=== PATIENT | male | born 1970 | race Caucasian/White ===

== ENCOUNTER 2018-03-26 15:25 | Outpatient (REF) | payer BC, SELFPAY ==
[2018-03-26 20:04] LABS: Abs Immature Grans 0.06 k/cumm (0.0-0.09); HCT 41.9 % (40.0-50.0); Mean Corp. HGB Concentration 33.4 g/dL (32.0-36.0); Mean Corpuscular Hemoglobin 29.7 pg (27.0-33.0); Mean Platelet Volume 11.6 fL (8.0-11.0); Platelet Count 261 x1000/uL (130-400); RBC 4.71 m/cumm (4.50-6.00); RBC Distribution Width 13.3 % (11.8-14.1); White Blood Cell Count 11.39 k/cumm (4.4-10.8)
[2018-03-26 21:03] LABS: Absolute Lymphocyte Count 2.51 k/cumm (1.2-3.4); Absolute Monocyte Count 1.37 k/cumm (0.11-0.7); Absolute Neutrophil Count 7.29 k/cumm (1.2-6.7); Atypical Lymphocytes % 8
[2018-03-26 21:04] LABS: Absolute Eosinophil Count 0.23 k/cumm (0.0-0.7)
[2018-03-26 21:05] LABS: Diff Comment Manual Differential; RBC Morphology Normal
== END 2018-03-26 15:45 ==
LOC: NCHCN 15:25
PROVIDERS: PCP Internal Medicine; Visit Provider Internal Medicine
DX: K57.92 Diverticulitis of intestine, part unspecified, without perforation or abscess without bleeding (principal); R10.9 Unspecified abdominal pain
CPT/HCPCS: 85025

== ENCOUNTER 2018-06-29 10:11 | Outpatient (REF) | payer BC, SELFPAY ==
[2018-06-29 19:12] LABS: ALT 32 U/L (12-78); AST 14 U/L (15-37); Albumin 4.2 g/dL (3.4-5.0); Alkaline Phosphatase 36 U/L (46-116); Anion Gap 9.4 mmol/L (3-11); BUN 21 mg/dL (7-18); Bilirubin, Total 0.6 mg/dL (0.2-1.0); CO2 27.6 mmol/L (21.0-32.0); CREATININE 1.24 mg/dL (0.70-1.30); Calcium 9.7 mg/dL (8.5-10.1); Chloride 105 mmol/L (98-107); Cholesterol 202 mg/dL (50-200); Glucose 87 mg/dL (70-100); HDL Cholesterol 47 mg/dL (40-60); LDL CHOLESTEROL 132 mg/dL (<100); Potassium 4.5 mmol/L (3.5-5.1); Sodium 142 mmol/L (136-145); Total Protein 7.3 g/dL (6.4-8.2); Triglyceride 125 mg/dL (30-150)
== END 2018-06-29 10:31 ==
LOC: NCHCN 10:11
PROVIDERS: PCP Internal Medicine; Visit Provider Internal Medicine
DX: E78.5 Hyperlipidemia, unspecified (principal); I10 Essential (primary) hypertension
CPT/HCPCS: 80053; 80061; 83721

== ENCOUNTER 2018-11-25 09:21 | Outpatient (REF) | payer BC, SELFPAY ==
[2018-11-25 20:31] LABS: Cholesterol 279 mg/dL (50-200); HDL Cholesterol 35 mg/dL (40-60); Triglyceride 432 mg/dL (30-150)
[2018-11-25 21:03] LABS: LDL CHOLESTEROL 167 mg/dL (<100)
== END 2018-11-25 09:41 ==
LOC: NCHCN 09:21
PROVIDERS: PCP Internal Medicine; Visit Provider Internal Medicine
DX: Z00.00 Encounter for general adult medical examination without abnormal findings (principal); I10 Essential (primary) hypertension
CPT/HCPCS: 80061; 83721

== ENCOUNTER 2019-10-21 14:56 | Outpatient (REF) | payer BC, SELFPAY ==
[2019-10-23 13:23] LABS: COVID-19 RT-PCR UVMMC Result Negative (Negative)
== END 2019-10-21 15:16 ==
LOC: NCHCN 14:56
PROVIDERS: PCP Nurse Practitioner Family; Visit Provider Nurse Practitioner Family
DX: R05 Cough (principal)
CPT/HCPCS: U0003

== ENCOUNTER 2019-10-28 16:46 | Outpatient (REF) | payer BC, SELFPAY ==
[2019-10-28 20:08] LABS: HCT 43.1 % (40.0-50.0); HGB 14.8 g/dL (13.5-17.5); Mean Corp. HGB Concentration 34.3 g/dL (32.0-36.0); Mean Corpuscular Hemoglobin 30.1 pg (27.0-33.0); Mean Corpuscular Volume 87.8 fL (80-95); Mean Platelet Volume 11.8 fL (8.0-11.0); Platelet Count 216 x1000/uL (130-400); RBC 4.91 m/cumm (4.50-6.00); RBC Distribution Width 13.4 % (11.8-14.1); White Blood Cell Count 7.23 k/cumm (4.4-10.8)
[2019-10-28 20:45] LABS: Albumin 4.2 g/dL (3.4-5.0); Alkaline Phosphatase 65 U/L (46-116); Anion Gap 9.9 mmol/L (3-11); BUN 20 mg/dL (7-18); Bilirubin, Total 0.5 mg/dL (0.2-1.0); CO2 28.1 mmol/L (21.0-32.0); CREATININE 1.11 mg/dL (0.70-1.30); Calcium 9.4 mg/dL (8.5-10.1); Chloride 105 mmol/L (98-107); Glucose 105 mg/dL (74-106); NT-proBNP 28 pg/mL (<300); Potassium 4.5 mmol/L (3.5-5.1); Sodium 143 mmol/L (136-145)
[2019-10-28 21:39] LABS: Troponin I < 0.05 ng/mL (<0.06)
[2019-10-28 21:40] LABS: ALT 13 U/L (16-63); AST 44 U/L (15-37)
== END 2019-10-28 17:06 ==
LOC: NCHCN 16:46
PROVIDERS: PCP Nurse Practitioner Family; Visit Provider Internal Medicine
DX: R07.89 Other chest pain (principal); R06.02 Shortness of breath
CPT/HCPCS: 80053; 85027; 83880; 84484

== ENCOUNTER 2021-01-29 10:38 | Outpatient (REF) | payer BC, SELFPAY ==
[2021-01-29 20:42] LABS: Calculated LDL 143 mg/dL (<100); Cholesterol 251 mg/dL (<200); HDL Cholesterol 43 mg/dL (40-60); Triglyceride 326 mg/dL (<150)
== END 2021-01-29 10:39 | disposition home or self-care (01) ==
LOC: NCHCN 10:38
PROVIDERS: PCP Nurse Practitioner Family; Visit Provider Internal Medicine
DX: E78.2 Mixed hyperlipidemia (principal)
CPT/HCPCS: 80061

== ENCOUNTER 2021-09-10 19:55 | Outpatient (REF) | payer BC, SELFPAY ==
[2021-09-10 19:50] LABS: ALT 27 U/L (16-63); AST 15 U/L (15-37); Albumin 4.3 g/dL (3.4-5.0); Alkaline Phosphatase 71 U/L (46-116); Anion Gap 7.4 mmol/L (3-11); BUN 16 mg/dL (7-18); Bilirubin, Total 0.5 mg/dL (0.2-1.0); CO2 28.6 mmol/L (21.0-32.0); Calcium 9.1 mg/dL (8.5-10.1); Calculated LDL 109 mg/dL (<100); Chloride 106 mmol/L (98-107); Cholesterol 196 mg/dL (<200); Glucose 95 mg/dL (74-106); HDL Cholesterol 41 mg/dL (40-60); Potassium 5.1 mmol/L (3.5-5.1); Sodium 142 mmol/L (136-145); Triglyceride 232 mg/dL (<150)
== END 2021-09-10 19:56 | disposition home or self-care (01) ==
LOC: NCHCN 19:55
PROVIDERS: PCP Nurse Practitioner Family; Visit Provider Internal Medicine
DX: I10 Essential (primary) hypertension (principal); E78.2 Mixed hyperlipidemia
CPT/HCPCS: 80053; 80061

== ENCOUNTER 2023-03-21 14:28 | Outpatient (REF) | payer BC, SELFPAY ==
[2023-03-21 18:43] LABS: ALT 39 U/L (16-63); AST 18 U/L (15-37); Albumin 4.2 g/dL (3.4-5.0); Alkaline Phosphatase 75 U/L (46-116); Anion Gap 9.3 mmol/L (3-11); BUN 14 mg/dL (7-18); Bilirubin, Total 0.9 mg/dL (0.2-1.0); CO2 28.7 mmol/L (21.0-32.0); Calcium 9.5 mg/dL (8.5-10.1); Calculated LDL 165 mg/dL (<100); Chloride 102 mmol/L (98-107); Cholesterol 269 mg/dL (<200); Estimated GFR 91.69 (mL/min/1.73m2); Glucose 105 mg/dL (74-106); HDL Cholesterol 46 mg/dL (40-60); Potassium 4.1 mmol/L (3.5-5.1); Sodium 140 mmol/L (136-145); Triglyceride 290 mg/dL (<150)
[2023-03-21 19:35] LABS: Uric Acid 8.5 mg/dL (3.5-7.2)
== END 2023-03-21 14:29 | disposition home or self-care (01) ==
LOC: NCHCN 14:28
PROVIDERS: PCP Internal Medicine; Visit Provider Internal Medicine
DX: I10 Essential (primary) hypertension (principal); M10.9 Gout, unspecified; E78.2 Mixed hyperlipidemia
CPT/HCPCS: 80053; 80061; 84550

== ENCOUNTER 2024-09-29 09:09 | Outpatient (REF) | payer BC, SELFPAY ==
[2024-09-29 21:06] LABS: ALT 29 U/L (16-63); AST 21 U/L (15-37); Albumin 4.1 g/dL (3.4-5.0); Alkaline Phosphatase 72 U/L (46-116); Anion Gap 6.3 mmol/L (3-11); BUN 19 mg/dL (7-18); Bilirubin, Total 0.7 mg/dL (0.2-1.0); CO2 28.7 mmol/L (21.0-32.0); CREATININE 1.1 mg/dL (0.70-1.30); Calcium 9.8 mg/dL (8.5-10.1); Chloride 106 mmol/L (98-107); Estimated GFR 81.28 (mL/min/1.73m2); Glucose 107 mg/dL (74-106); Potassium 4.7 mmol/L (3.5-5.1); Sodium 141 mmol/L (136-145); Total Protein 7.5 g/dL (6.4-8.2); Uric Acid 8.7 mg/dL (3.5-7.2)
[2024-09-29 21:25] LABS: Calculated LDL 170 mg/dL (<100); Cholesterol 257 mg/dL (<200); HDL Cholesterol 49 mg/dL (>or=40); Triglyceride 192 mg/dL (<150)
== END 2024-09-29 09:10 | disposition home or self-care (01) ==
LOC: NCHCN 09:09
PROVIDERS: PCP Internal Medicine; Visit Provider Internal Medicine
DX: M10.9 Gout, unspecified (principal); E78.5 Hyperlipidemia, unspecified
CPT/HCPCS: 80053; 80061; 84550

== ENCOUNTER 2024-11-25 17:35 | Outpatient (REF) | payer BC, SELFPAY ==
[2024-11-25 20:06] LABS: HCT 44.2 % (40.0-50.0); HGB 15.0 g/dL (13.5-17.5); MCH 29.4 pg (27.0-33.0); MCHC 33.9 % (32.0-36.0); MCV 87 fL (80-95); MPV 11.5 fL (8.0-11.0); Platelet Count 256 10^3/uL (130-400); RBC 5.10 10^6/uL (4.36-5.78); RDW 13.4 % (11.8-14.1); RDW-SD 42.5 fL; WBC 7.60 10^3/uL (4.4-10.8)
[2024-11-25 20:22] LABS: TSH 2.48 uIU/mL (0.36-3.74)
== END 2024-11-25 17:36 | disposition home or self-care (01) ==
LOC: NCHCN 17:35
PROVIDERS: PCP Internal Medicine; Visit Provider Internal Medicine
DX: Z79.899 Other long term (current) drug therapy (principal); F41.1 Generalized anxiety disorder
CPT/HCPCS: 85027; 84443